=== PATIENT | male | born 1990 | race Caucasian/White ===

== ENCOUNTER 2020-06-16 16:32 | Emergency (ER) | payer OTHER ==
[~2020-06-16 16:32] MED LIST: CARAFATE1 GM PO; NORCO 5-325 TA1 EACH PO; PROTONIX40 MG PO; ZOFRAN4 MG PO; ZOFRAN8 MG PO
== END 2020-06-16 18:55 | disposition home or self-care (01) ==
LOC: ER1 16:32
DX: S93.621A Sprain of tarsometatarsal ligament of right foot, initial encounter (principal); F17.290 Nicotine dependence, other tobacco product, uncomplicated; X50.1XXA Overexertion from prolonged static or awkward postures, initial encounter; Y93.89 Activity, other specified; Y92.89 Other specified places as the place of occurrence of the external cause; Y99.0 Civilian activity done for income or pay
CPT/HCPCS: 73630; 99283